=== PATIENT | female | born 1965 | race Caucasian/White ===

== ENCOUNTER → 2017-04-18 | Outpatient (CLI) | payer OTHER | LOC: FIMAGING 07:06 | PROVIDERS: ATTEND Internal Medicine Endocrinology, Diabetes & Metabolism | DX: E04.1 Nontoxic single thyroid nodule (principal) ==

== ENCOUNTER → 2018-06-12 | Outpatient (CLI) | payer OTHER | LOC: FIMAGING 18:01 | PROVIDERS: ATTEND Orthopaedic Surgery | DX: M17.11 Unilateral primary osteoarthritis, right knee (principal); M22.41 Chondromalacia patellae, right knee; M23.41 Loose body in knee, right knee; M25.461 Effusion, right knee ==

== ENCOUNTER 2018-08-20 09:21 | Day surgery (SDC) | payer OTHER ==
[2018-08-20] MEDS ORDERED: LIDOCAINE 1% 2 ML INJ ID PRN (09:55)
[2018-08-20] MEDS ORDERED: ceFAZolin 2 GM/DEXTROSE 100 ML IV ONE (09:55)
[2018-08-20] MEDS ORDERED: LR 1,000 ML IV ONE (09:55)
[2018-08-20] MEDS ORDERED: EPINEPHrine 1 MG/ML INJ ONE (10:33)
[2018-08-20] MEDS ORDERED: LIDO/EPI 1% **for epidural** 30 ML SDV ONE (10:33)
[2018-08-20] MEDS ORDERED: BUPIVACAINE/EPI 0.5% 30 ML SDV ONE (10:33)
[2018-08-20] MEDS ORDERED: MIDAZOLAM 2 MG/2 ML VIAL IVP ONE (10:43)
--- NOTE | 2018-08-20 10:43 | PDANEPAE ---
ANE Past Medical History - Cardiovascular History Hx Hypertension: No Hx Arrhythmias: No Hx Chest Pain: No Hx Coronary Artery / Peripheral Vascular Disease: No Hx CHF / Valvular Disease: No Hx Palpitations: No - Pulmonary History Hx COPD: No Hx Asthma/Reactive Airway Disease: No Hx Recent Upper Respiratory Infection: No Hx Oxygen in Use at Home: No Hx Sleep Apnea: No Sleep Apnea Screening Result - Last Documented: Negative - Neurologic History Hx Cerebrovascular Accident: No Hx Seizures: No Hx Dementia: No - Endocrine History Hx Diabetes: No Endocrine History Comment: THYROID NODULES - Renal History Hx Renal Disorders: No - Liver History Hx Hepatic Disorders: No - Neurological & Psychiatric Hx Hx Neurological and Psychiatric Disorders: No - Cancer History Hx Cancer: Yes Cancer History Comment: SKIN - Congenital Disorder History Hx Congenital Disorders: No - GI History Hx Gastrointestinal Disorders: No - Other Health History Other Health History: DDD/CDD - Chronic Pain History Chronic Pain: Yes (RT KNEE) - Surgical History Prior Surgeries: LT CLAVICLE ORIF WITH BONE GRAFT. LT KNEE SCOPE 2014. TMJ. RT ELBOW TENDON REPAIR ANE Review of Systems Review of Systems: - Exercise capacity METS (RN): 5 METS ANE Patient History - Allergies Allergies/Adverse Reactions: erythromycin base Allergy (Verified 07/13/15 11:22) Sulfa (Sulfonamide Antibiotics) Allergy (Verified 07/13/15 11:41) tetracycline Allergy (Verified 07/13/15 11:41) - Home Medications Home Medications: Aspirin [Aspirin 81mg (OTC)] 07/13/15 [Last Taken Unknown] Ibuprofen 200 mg PO Q4 07/13/15 [Last Taken Unknown] Simvist 07/13/15 [Last Taken Unknown] - NPO status NPO Since - Liquids (Date): 08/20/18 NPO Since - Liquids (Time): 08:00 NPO Since - Solids (Date): 08/20/18 NPO Since - Solids (Time): 00:00 - Smoking Hx Smoking Status: Never smoked ANE Labs/Vital Signs - Vital Signs Blood Pressure: 125/86 Heart Rate: 103 Respiratory Rate: 16 O2 Sat (%): 98 Height: 167.64 cm Weight: 62.596 kg ANE Physical Exam - Airway Neck exam: FROM Mallampati Score: Class 1 Mouth exam: normal dental/mouth exam, small mouth opening - Pulmonary Pulmonary: no respiratory distress - Cardiovascular Cardiovascular: regular rate and rhythym - ASA Status ASA Status: I ANE Anesthesia Plan Anesthesia Plan: GA w LMA
--- NOTE | 2018-08-20 11:03 | PDHPUP ---
History & Physical Update H&P update statement: This history and physical update is based on an assessment of the patient which was completed after admission or registration (within 24 hours), but prior to the surgery/procedure. H&P update: H&P reviewed & patient examined
[2018-08-20] MEDS ORDERED: fentaNYL 100 MCG/2 ML INJ ONE ×5 (11:09→14:38)
[2018-08-20] MEDS ORDERED: PROPOFOL 200 MG/20 ML VIAL ONE ×2 (11:09)
[2018-08-20] MEDS ORDERED: LIDOCAINE 2% 2 ML INJ ONE (11:18)
[2018-08-20] MEDS ORDERED: DEXAMETHASONE 4 MG/ML VIAL ONE (11:19)
[2018-08-20] MEDS ORDERED: KETOROLAC 30 MG/1 ML SDV ONE (11:19)
[2018-08-20] MEDS ORDERED: ONDANSETRON 4 MG/2 ML VIAL ONE (11:19)
[2018-08-20] MEDS ORDERED: PROPOFOL/EMULSION 500 MG/50 ML BOTTLE IV ONE (11:27)
[2018-08-20] MEDS ORDERED: ONDANSETRON 4 MG/2 ML VIAL IVP PRN (12:37)
[2018-08-20] MEDS ORDERED: NALOXONE HCL 0.4 MG/ML INJ IVP PRN (12:37)
[2018-08-20] MEDS ORDERED: NS 500 ML IV PRN (12:37)
--- NOTE | 2018-08-20 12:38 | POSTANESTH ---
Post Anesthetic Evaluation Cardiovascular Status: Normal, Stable Respiratory Status: Normal, Stable Level of Consciousness/Mental Status: Mildly Sleepy, Arousable Pain Control: Adequate, Prn Tx Ordered Nausea/Vomiting Control: Adequate, Prn Tx Ordered Complications Possibly Related to Anesthesia: None Noted
[2018-08-20] MEDS: fentaNYL 100 MCG/2 ML INJ IVP PRN ×7 (12:59→14:51)
--- NOTE | 2018-08-20 13:17 | GOP ---
DATE OF OPERATION: 08/20/2018 SURGEON: Osbaldo Mercado MD STAYING MACHINE OPERATOR: Nunu Adams PA-C. ANESTHESIA: General. ANESTHESIOLOGIST: Dr. Bear PREOPERATIVE DIAGNOSIS: 1. 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 2. Right knee intra-articular loose bodies. 3. Right knee lateral meniscus tear. 4. Right knee extensive synovitis. POSTOPERATIVE DIAGNOSIS: 1. 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 2. Right knee intra-articular loose bodies. 3. Right knee lateral meniscus tear. 4. Right knee extensive synovitis. PROCEDURE PERFORMED: 1. Right knee arthroscopic partial lateral meniscectomy. 2. Right knee arthroscopic chondroplasty of lateral tibial plateau and patellofemoral joint. 3. Right knee arthroscopic removal of loose bodies (8). 4. Right knee arthroscopic peripatellar releases and lateral release. 5. Right knee arthroscopic notch osteophyte resection and extensive synovectomy. FINDINGS: EUA was without any ligamentous laxity. ROM was 3-140. Trace effusion. Arthroscopic findings: 1. Suprapatellar pouch was notable for multiple loose bodies within the pouch as well as the majorit y of the remaining loose bodies in the lateral gutter. Medial gutter was clear. There was extensive synovitis throughout the gutters and pouch. There was a medial based suprapatellar plica that exten ded down to the medial shelf plica. 2. Patellofemoral joint was with [id number] articulation along the medial aspect of the joint, i.e . medial facet of the patella and medial trochlea. The lateral aspect cartilage was somewhat frayed, though the majority of the cartilage was intact. Midline tracking, normal tilt. 3. Notch was with stenosis due to osteophytes, mostly along on the medial femoral condyle. ACL and PCL were intact. There was extensive synovitis. Grade 2 infrapatellar plica with extensive synoviti s. There was fat pad hypertrophy. Inner meniscal ligament was intact. 4. Lateral compartment was with extensive lateral tibial plateau, grade 2 chondromalacia, as well as a posterior horn lateral meniscus tear and some anterior horn free edge meniscal fraying. Popliteus tendon intact. 5. Medial compartment was relatively normal throughout. 6. Posteromedial and posterolateral compartments were without any loose bodies. There was stenosis due to osteophytes. Meniscal roots intact. SPECIMENS: None. ESTIMATED BLOOD LOSS: Minimal. 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 She has known diffuse DJD, mostly affecting the patellofem oral joint and preop workup was consistent with loose bodies as well as the above-listed diagnosis. After exhausting extensive conservative care over greater than a half year, she elected to proceed wi th surgery as listed above. The risks, benefits, and alternatives were described to the patient. Al l of her questions were answered prior to surgery. A signed witnessed informed consent was obtained and placed in the patient's chart. Please see history and physical for additional information. DESCRIPTION OF PROCEDURE: The patient was identified in the preop holding area, and her right knee w as signed, designating the operative site. The patient was confirmed in left lower extremity DEON hos e and SCDs. She was treated with 2 g IV prophylactic cefazolin per protocol. She was taken back to the operating room, placed supine on the OR table, and general anesthesia was obtained. Both knees u nderwent EUA with findings listed above. The left lower extremity was wrapped with foam eggcrate pad ding around the proximal fibula as well as the heel and ankle and placed on a well-padded OR table. Right lower extremity was wrapped proximally with cast padding and a nonsterile tourniquet, and then prepped and draped in usual sterile manner. Standard anteromedial, anterolateral scope portals were established with #11 blade. Complete diagnos tic arthroscopy was performed with findings listed above. Initial focus was on the extensive synovitis as this was obscuring visualization. In addition, the i nfrapatellar plica was obscuring visualization, and this with the fat pad was treated with standard a blation and plica release. The plica was debrided and fat pad debrided with the full-radius shaver a nd working through both the medial and lateral portals with the ArthroCare wand. Hemostasis was main tained throughout. The leg flexed up the side of the bed. A large notch osteophyte along the teresita medial tibial plateau was resected. Using the pituitary, the point of the osteophyte was resected an d removed out through the medial portal. Next, using a full-radius shaver and high-speed forward fun ction, this was carefully shaved down in order to achieve a more normal and co-planed plateau in this area. This was on the anterolateral periarticular margin of the medial tibial plateau. Very carefu l osteophyte resection was performed and great care was taken to protect the inner meniscal ligament at all times. With the knee in figure-of-4 position, the lateral compartment was entered. Lateral meniscus tear wa s encountered, and this was carefully treated with partial meniscectomy using both a basket resection tool as well as the full-radius shaver. Further, the chondromalacia of the lateral tibial plateau w as treated with standard chondroplasty using the full-radius shaver. Once all work was completed wit hin the lateral compartment, the knee was taken out of figure-of-4 position and carefully inspected t o see the entirety of the medial femoral condyle, which was in good condition. With the lateral post in position, gentle valgus stress was used to enter the medial compartment. Th is was probed throughout, and there was mild trace to grade 1 chondromalacia of the medial tibial david teau posterolaterally; however, overall it was relatively normal in appearance. No treatment was per formed within this compartment. With the knee anywhere from 0 to 20 degrees of flexion, the suprapatellar pouch as well as patellofem oral joint was addressed. Using the full-radius shaver, any unstable cartilage flap segments were re sected throughout the periphery of the full-thickness cartilage loss of the trochlea and patella. Ne xt, using the full-radius shaver, extensive synovitis throughout the peripatellar region as well as s uprapatellar pouch and gutters was performed, i.e. synovectomy, resecting only the unstable fronds an d segments. Next, using the ArthroCare wand, the coag function was used to carefully assure hemostas is throughout. The ablation function of the wand was then used to perform peripatellar releases, rel easing the suprapatellar plica as well as ablating the medial shelf plica and performing a limited la teral release. Once this was completed, a counter incision was made along the superolateral portion of the knee joint in order to remove a total of 8 osteochondral loose bodies. The largest of these l oose bodies was greater than a cm in diameter. Once all the loose bodies were removed and all other work was completed, the knee was swept throughout. All areas of synovectomy, which were performed in all 3 compartments, were carefully inspected with drop in pump pressure to assure hemostasis. Once our work was completed, the equipment was removed and saline evacuated. Portals were closed with int errupted 3-0 nylon sutures. Sterile postoperative surgical dressings were applied. DEON hose was efren lied. The anesthesia service then took over to wake the patient up. TOURNIQUET TIME: None. DRAINS: None. IMPLANTS: None. COMPLICATIONS: None. DISPOSITION: The patient was extubated and transferred to PACU in stable condition. /[id number]/MODL
--- NOTE | 2018-08-20 13:20 | POSTOPPROG ---
Post Op Note Date of Operation: 08/20/18 Surgeon: Osbaldo Mercado System Auditor: Nunu Adams, KANA Anesthesia: GET(General Endotracheal) Pre-op Diagnosis: Right knee chondromalacia and early DJD Post-op Diagnosis: Right knee chondromalacia and early DJD Indication: Right knee chondromalacia and early DJD Procedure: Right knee PLM, loose body removal, synevectomy Inf/Abcess present in the surg proc area at time of surgery?: No Depth: Deep Incisional (Fascial) EBL: 50-100
[2018-08-20] MEDS ORDERED: HYDROCODONE/APAP 5/325 TAB ONE ×2 (13:24→14:48)
[2018-08-20] MEDS: HYDROCODONE/APAP 5/325 TAB PO PRN ×2 (13:35→14:48)
[2018-08-20] MEDS ORDERED: HYDROmorphONE/DILAUDID 2 MG/ML INJ ONE (14:18)
[2018-08-20] MEDS: HYDROmorphONE/DILAUDID 2 MG/ML INJ IVP PRN ×3 (14:22→14:50)
[2018-08-20 15:26] VITALS: BP 112/65
== END 2018-08-20 15:33 | disposition home or self-care (01) ==
LOC: FSGY 09:21
PROVIDERS: ATTEND Orthopaedic Surgery
DX: M17.11 Unilateral primary osteoarthritis, right knee (principal); M94.261 Chondromalacia, right knee; M23.41 Loose body in knee, right knee
CPT/HCPCS: J0171; J0690; J1100; J1170; J1885; J2250; J2270; J2405; J2704; J3010